=== PATIENT | female | born 1940 | race Caucasian/White ===

== ENCOUNTER 2016-09-14 09:44 | Observation (INO) | payer MEDICARE ==
[2016-09-14] MEDS ORDERED: NITROGLYCERIN OINT 1 INCH/GM PACKET TOPICAL STA (10:09)
[2016-09-14] MEDS ORDERED: ASPIRIN 81 MG CHEW PO STA (10:09)
[2016-09-14] MEDS ORDERED: SODIUM CHLORIDE 0.9% 1,000 ML IV STA (10:09)
[2016-09-14] MEDS ORDERED: ACETAMINOPHEN TAB 500 MG TAB PO STA (10:11)
--- NOTE | 2016-09-14 10:50 | XR ---
EXAMINATION TYPE: XR chest 2V DATE OF EXAM: 09/14/2016 COMPARISON: NONE HISTORY: Chest pain today. TECHNIQUE: Frontal and lateral views of the chest are obtained. FINDINGS: There is no focal air space opacity, pleural effusion, or pneumothorax seen. The cardiac silhouette size is enlarged with atherosclerotic aorta. The osseous structures are somewhat deminer alized. IMPRESSION: Cardiomegaly without acute pulmonary process.
[2016-09-14 11:05] LABS: Basophils % (A) 1 %; CH 31.1; CHCM 34.5; Eosinophils # (A) 0.1 k/uL (0-0.7); Eosinophils % (A) 2 %; HCT 40.9 % (34.0-46.0); HDW 2.53; HGB 14.1 gm/dL (11.4-16.0); Luc % (Auto) 2; Lymphocytes # (A) 0.7 k/uL (1.0-4.8); Lymphocytes % (A) 16 %; MCH 31.3 pg (25.0-35.0); MCHC 34.6 g/dL (31.0-37.0); MCV 90.6 fL (80.0-100.0); Mean Platelet Volume 7.6; Monocytes # (A) 0.3 k/uL (0-1.0); Monocytes % (A) 7 %; Neutrophils # (A) 3.5 k/uL (1.3-7.7); Neutrophils % (A) 74 %; RBC 4.52 m/uL (3.80-5.40); RDW 13.5 % (11.5-15.5); WBC 4.7 k/uL (3.8-10.6); WBC (Perox) 4.62
[2016-09-14 11:15] LABS: Partial Thromboplastin Time 22.6 sec (22.0-30.0); Prothrombin Time 10.1 sec (9.0-12.0)
[2016-09-14 11:20] LABS: ALT 28 U/L (9-52); AST 24 U/L (14-36); Alkaline Phosphatase 91 U/L (38-126); Anion Gap 8 mmol/L; Blood Urea Nitrogen 17 mg/dL (7-17); Calcium 9.8 mg/dL (8.4-10.2); Carbon Dioxide 25 mmol/L (22-30); Chloride 111 mmol/L (98-107); Glucose 89 mg/dL (74-99); Magnesium 1.8 mg/dL (1.6-2.3); Non-African American GFR(MDRD) >60 (>60 ml/min/1.73 sqM); Potassium 3.6 mmol/L (3.5-5.1); Sodium 144 mmol/L (137-145); Total Bilirubin 0.8 mg/dL (0.2-1.3)
[2016-09-14 11:29] LABS: Creatine Kinase 117 U/L (30-135)
--- NOTE | 2016-09-14 11:29 | ED ---
Chest Pain HPI - General Chief Complaint: Chest Pain Stated Complaint: Chest Pain Time Seen by Provider: 09/14/16 09:56 Source: patient Mode of arrival: ambulatory Limitations: no limitations - History of Present Illness Initial Comments: She stated that she had a chest pain 945 about 25 minutes prior to arrival here lasted for 15 minutes now she is totally pain-free no shortness of breath no pleuritic chest pain no fever no chills and she is no nausea no vomiting no cold sweats. She stated she has a history of for a vasovagal event CN the second time vasovagal episodes present like to, review of system is totally unremarkable including chest pain right now - Related Data Home Medications Medication Instructions Recorded Confirmed Aspirin 81 mg PO DAILY 09/14/16 09/14/16 Atenolol [Tenormin] 25 mg PO DAILY 09/14/16 09/14/16 Cyanocobalamin [Vitamin B-12] 500 mcg PO DAILY 09/14/16 09/14/16 Ferrous Sulfate [Iron] 325 mg PO DAILY 09/14/16 09/14/16 Omeprazole Magnesium [Prilosec Otc] 20 mg PO BID 09/14/16 09/14/16 Pravastatin Sodium [Pravachol] 80 mg PO DAILY 09/14/16 09/14/16 Allergies Allergy/AdvReac Type Severity Reaction Status Date / Time Bisphosphonates Allergy Unknown Unknown Verified 09/14/16 11:17 cephalexin [From Keflex] Allergy Unknown Unknown Verified 09/14/16 11:17 clindamycin Allergy Unknown Unknown Verified 09/14/16 11:17 Review of Systems ROS Statement: Those systems with pertinent positive or pertinent negative responses have been documented in the HPI. ROS Other: All systems not noted in ROS Statement are negative. EKG Findings - EKG Comments: EKG Findings:: Ventricular rate is 56 [place] interval is 260 QRS duration is 112 QT/ QTc is 426/411 and has a sinus bradycardia with a first-degree AV block and incomplete left bundle branch block is a T-wave inversion in leads 3 and T wave flattening in aVF no ST elevation or ST depression noticed in any other leads Past Medical History Past Medical History: No Reported History History of Any Multi-Drug Resistant Organisms: None Reported Past Surgical History: Bladder Surgery, Hysterectomy Past Psychological History: No Psychological Hx Reported Smoking Status: Never smoker Past Alcohol Use History: None Reported Past Drug Use History: None Reported General Exam - General Exam Comments Initial Comments: General: The patient is awake and alert, in no distress, and does not appear acutely ill. Skin: Skin is warm and dry and no rashes or lesions are noted. Eye: Pupils are equal, round and reactive to light, extra-ocular movements are intact; there is normal conjunctiva bilaterally. Ears, nose, mouth and throat: There are moist mucous membranes and no oral lesions. Neck: The neck is supple, there is no tenderness or JVD. Cardiovascular: There is a regular rate and rhythm. No murmur, rub or gallop is appreciated. Respiratory: To auscultation bilateral, no wheezing no rhonchi no distress respiratory leonardo noticed Gastrointestinal: Soft, non-distended, non-tender abdomen without masses or organomegaly noted. There is no rebound or guarding present. Bowel sounds are unremarkable. Back: There is no tenderness to palpation in the midline. There is no obvious deformity. Musculoskeletal: Normal ROM, no tenderness, There is no pedal edema. There is no calf tenderness or swelling. No cords were appreciated. Neurological: CN II-XII intact, Cranial nerves III through XII are intact. There are no obvious motor or sensory deficits. Coordination appears grossly intact. Speech is normal. Psychiatric: Cooperative, appropriate mood & affect, normal judgment. Limitations: no limitations Course Vital Signs 09/14/16 09/14/16 09:46 11:30 Temperature 98.6 F Pulse Rate 59 L 50 L Respiratory 20 18 Rate Blood Pressure 190/77 150/72 O2 Sat by Pulse 96 98 Oximetry Disposition Clinical Impression: Chest pain, Cardiomegaly Disposition: ADMITTED IP TO THIS HOSP Referrals: Henrietta Ring MD [Primary Care Provider] - 1-2 days
[2016-09-14 11:40] LABS: Troponin I <0.012 ng/mL (0.000-0.034)
[2016-09-14 11:47] LABS: Creatine Kinase MB 2.5 ng/mL (0.0-2.4)
[2016-09-14] MEDS ORDERED: MORPHINE SULFATE 2 MG/ML SYRINGE IVP PRN (13:23)
[2016-09-14] MEDS ORDERED: NITROGLYCERIN SL TABS 0.4 MG TAB SUBLINGUAL PRN (13:23)
[2016-09-14] MEDS ORDERED: SODIUM CHLORIDE 0.9% 1,000 ML IV SCH (13:30)
[2016-09-14 16:56] LABS: Creatine Kinase 99 U/L (30-135)
[2016-09-14 17:09] LABS: Troponin I <0.012 ng/mL (0.000-0.034)
[2016-09-14] MEDS: PANTOPRAZOLE 40 MG TABLET PO SCH (19:24)
[2016-09-14] MEDS ORDERED: ATORVASTATIN 40 MG TAB PO SCH (21:00)
[2016-09-14 23:04] LABS: Creatine Kinase 78 U/L (30-135)
[2016-09-14 23:18] LABS: Creatine Kinase MB 1.5 ng/mL (0.0-2.4); Troponin I <0.012 ng/mL (0.000-0.034)
[2016-09-15 02:09] LABS: Cholesterol 145 mg/dL (<200); HDL Cholesterol 56 mg/dL (40-60); Triglycerides 124 mg/dL (<150)
[2016-09-15 07:44] VITALS: RESP 16
[2016-09-15] MEDS ORDERED: ATENOLOL 25 MG TAB PO SCH (09:00)
[2016-09-15] MEDS ORDERED: PRAVASTATIN SODIUM 80 MG TAB PO SCH (09:00)
[2016-09-15] MEDS ORDERED: ASPIRIN 325 MG TAB PO SCH (09:00)
[2016-09-15] MEDS: PANTOPRAZOLE 40 MG TABLET PO SCH (10:19)
[2016-09-15 11:41] VITALS: BP 126/53; PULSE 60; TEMP 98.3
[2016-09-15] MEDS ORDERED: FERROUS SULFATE 325 MG TAB PO SCH (12:00)
[2016-09-15] MEDS ORDERED: CYANOCOBALAMIN 500 MCG TAB PO SCH (12:00)
--- NOTE | 2016-09-15 13:40 | P.HPIM ---
History of Present Illness H&P Date: 09/15/16 Chief Complaint: chest pain This is a 76-year-old female with past medical history significant for hypertension, hyperlipidemia, and what she describes as vasovagal the presented to the emergency room with chest pain. Patient said that she was driving her car and suddenly she had sharp pain in the middle of her chest that she rates as 8 out of 10 in severity. Patient said that her pain was associated with mild dizziness. She denies shortness of breath. She denies significant chest pain otherwise. She was concerned and decided to come to the emergency room. Her chest pain resolved approximately 10 minutes later without any treatment. Patient was evaluated in the emergency room twelve-lead EKG showed sinus bradycardia with no evidence of acute ischemic changes. Serial troponin were negative 3 sets. Chest x-ray showed evidence of cardiomegaly and no acute process otherwise. Patient was seen and evaluated by cardiology. Apparently she had a stress test done in the office approximately 4 months ago that was negative. Patient remained chest pain-free. Her pain was deemed to be atypical in nature. She was cleared by cardiology for discharge home. I would decrease her atenolol dose of 12.5 mg given bradycardia on presentation. She will follow-up with her head housekeeper in the office with his next week. Review of Systems Review of system: 14 points review of systems were obtained and were negative except to what were mentioned in the HPI. Past Medical History Past Medical History: Hyperlipidemia Additional Past Medical History / Comment(s): PT STATES SHE HAS BEEN TOLD SHE HAS A VASOVAGAL SYNDROME (STATED SHE HAD A POSTIVE TILT TABLE TEST). STATES THAT SHE HAS EPISODES OF PAIN OR FEELING OF GOING TO [facility] OUT, BUT NEVER PASSES OUT. ARTHRITIS History of Any Multi-Drug Resistant Organisms: None Reported Past Surgical History: Bladder Surgery, Cholecystectomy, Hysterectomy Additional Past Surgical History / Comment(s): BILAT CATARACT REMOVAL, BLADDER REMOVED (UROSTOMY) Past Anesthesia/Blood Transfusion Reactions: No Reported Reaction Past Psychological History: No Psychological Hx Reported Smoking Status: Never smoker Past Alcohol Use History: None Reported Past Drug Use History: None Reported - Past Family History Mother History Unknown: Yes Additional Family Medical History / Comment(s): HAD PACEMAKER AT 75 Father History Unknown: Yes Additional Family Medical History / Comment(s): HAD CANCER Medications and Allergies Home Medications Medication Instructions Recorded Confirmed Type Aspirin 81 mg PO DAILY 09/14/16 09/14/16 History Atenolol [Tenormin] 25 mg PO DAILY 09/14/16 09/14/16 History Cyanocobalamin [Vitamin B-12] 500 mcg PO DAILY 09/14/16 09/14/16 History Ferrous Sulfate [Iron] 325 mg PO DAILY 09/14/16 09/14/16 History Omeprazole Magnesium [Prilosec Otc] 20 mg PO BID 09/14/16 09/14/16 History Pravastatin Sodium [Pravachol] 80 mg PO DAILY 09/14/16 09/14/16 History Allergies Allergy/AdvReac Type Severity Reaction Status Date / Time Bisphosphonates Allergy Unknown Unknown Verified 09/14/16 11:17 cephalexin [From Keflex] Allergy Unknown Unknown Verified 09/14/16 11:17 clindamycin Allergy Unknown Unknown Verified 09/14/16 11:17 Physical Exam Vitals: Vital Signs Temp Pulse Pulse Resp BP BP Pulse Ox 09/15/16 11:39 98.3 F 60 16 126/53 94 L 09/15/16 07:39 98.1 F 62 16 128/49 93 L 09/15/16 04:00 98 F 57 L 18 119/52 94 L 09/15/16 00:00 18 09/14/16 23:22 62 18 133/56 99 09/14/16 20:00 18 09/14/16 19:23 97.9 F 64 18 127/55 94 L 09/14/16 15:21 54 L 09/14/16 14:21 97.4 F L 57 L 16 156/75 96 09/14/16 13:41 97.6 F 54 L 18 156/81 99 Intake and Output 09/14/16 09/15/16 09/15/16 22:59 06:59 14:59 Intake Total 500 118 Balance 500 118 Intake: Intake, IV Titration 500 Amount Sodium Chloride 0.9% 1, 500 000 ml @ 100 mls/hr IV . Q10H STA Rx#:[id number] Oral 118 Other: Voiding Method Toilet Toilet Toilet # Voids 1 Weight 79.3 kg 79.3 kg Patient Weight 09/16/16 06:59 Weight 79.3 kg General: The patient is awake and alert, in no distress Eye: there is normal conjunctiva bilaterally. Neck: The neck is supple, there is no JVD. Cardiovascular: Normal S1-S2, no S3-S4, no murmurs. Respiratory: Lungs clear to auscultation bilaterally Gastrointestinal: Abdomen is soft, nontender Musculoskeletal: There is no pedal edema. Neurological:. Speech is normal. Skin: Skin is warm and dry Results CBC & Chem 7: 09/14/16 10:33 09/14/16 10:33 Thrombosis Risk Factor Assmnt - Choose All That Apply Other Risk Factors: Yes Each Risk Factor Represents 3 Points: Age 75 years or older Thrombosis Risk Factor Assessment Total Risk Factor Score: 3 Thrombosis Risk Factor Assessment Level: Moderate Risk Assessment and Plan Plan: This is a 76-year-old female with past medical history significant for hypertension, hyperlipidemia, and what she describes as vasovagal the presented to the emergency room with chest pain. Patient said that she was driving her car and suddenly she had sharp pain in the middle of her chest that she rates as 8 out of 10 in severity. Patient said that her pain was associated with mild dizziness. She denies shortness of breath. She denies significant chest pain otherwise. She was concerned and decided to come to the emergency room. Her chest pain resolved approximately 10 minutes later without any treatment. Patient was evaluated in the emergency room twelve-lead EKG showed sinus bradycardia with no evidence of acute ischemic changes. Serial troponin were negative 3 sets. Chest x-ray showed evidence of cardiomegaly and no acute process otherwise. Patient was seen and evaluated by cardiology. Apparently she had a stress test done in the office approximately 4 months ago that was negative. Patient remained chest pain-free. Her pain was deemed to be atypical in nature. She was cleared by cardiology for discharge home. I would decrease her atenolol dose of 12.5 mg given bradycardia on presentation. She will follow-up with her head housekeeper in the office with his next week.
--- NOTE | 2016-09-15 13:41 | P.DS ---
Providers Date of admission: 09/14/16 13:23 Expected date of discharge: 09/15/16 Attending physician: Mile Bolden Consults: 09/14/16 13:23 Consult Physician Urgent Consulting Provider: Cam Rudolph Consult Reason/Comments: Chest pain Do you want consulting provider notified?: Yes Primary care physician: [facility] Course: This is a 76-year-old female with past medical history significant for hypertension, hyperlipidemia, and what she describes as vasovagal the presented to the emergency room with chest pain. Patient said that she was driving her car and suddenly she had sharp pain in the middle of her chest that she rates as 8 out of 10 in severity. Patient said that her pain was associated with mild dizziness. She denies shortness of breath. She denies significant chest pain otherwise. She was concerned and decided to come to the emergency room. Her chest pain resolved approximately 10 minutes later without any treatment. Patient was evaluated in the emergency room twelve-lead EKG showed sinus bradycardia with no evidence of acute ischemic changes. Serial troponin were negative 3 sets. Chest x-ray showed evidence of cardiomegaly and no acute process otherwise. Patient was seen and evaluated by cardiology. Apparently she had a stress test done in the office approximately 4 months ago that was negative. Patient remained chest pain-free. Her pain was deemed to be atypical in nature. She was cleared by cardiology for discharge home. I would decrease her atenolol dose of 12.5 mg given bradycardia on presentation. She will follow-up with her auto body painter in the office with his next week. Plan - Discharge Summary New Discharge Prescriptions: New Atenolol [Tenormin] 12.5 mg PO DAILY #30 tab Continue Aspirin 81 mg PO DAILY Pravastatin Sodium [Pravachol] 80 mg PO DAILY Ferrous Sulfate [Iron] 325 mg PO DAILY Cyanocobalamin [Vitamin B-12] 500 mcg PO DAILY Omeprazole Magnesium [Prilosec Otc] 20 mg PO BID Discontinued Atenolol [Tenormin] 25 mg PO DAILY Discharge Medication List Aspirin 81 mg PO DAILY 09/14/16 [History] Cyanocobalamin [Vitamin B-12] 500 mcg PO DAILY 09/14/16 [History] Ferrous Sulfate [Iron] 325 mg PO DAILY 09/14/16 [History] Omeprazole Magnesium [Prilosec Otc] 20 mg PO BID 09/14/16 [History] Pravastatin Sodium [Pravachol] 80 mg PO DAILY 09/14/16 [History] Atenolol [Tenormin] 12.5 mg PO DAILY #30 tab 09/15/16 [Rx] Follow up Appointment(s)/Referral(s): Henrietta Ring MD [Primary Care Provider] - 1-2 days Discharge Disposition: HOME SELF-CARE
--- NOTE | 2016-09-15 16:17 | CONS ---
DATE OF CONSULTATION: Cheyenne Null is a 76-year-old lady with a known to diagnosis of vasovagal syncope who always stays well hydrated, has been on a small dose of beta blockers, sees Dr. Kitty Zuleta in the outpatient setting. She came into the hospital with an episode off of about 15 minutes of discomfort in the chest, which she described as tingling feeling, felt a little uncomfortable. It happened while she was at rest, and then she thought this may be something to do with her vasovagal type feeling. She did not have any nausea or any sensation of lightheadedness, dizziness, syncope or near syncope. The quality of pain seems very atypical, a fleeting sensation across the chest that came on and off. This symptom had completely resolved by the time she arrived in the hospital. Her troponins are normal. EKG is unremarkable. Within the last one year according to the patient she had a stress test that was negative. She has hyperlipidemia, vasovagal tendencies, and borderline hypertension. She is resting comfortably without symptoms. PAST MEDICAL HISTORY: 1. History of vasovagal episodes. 2. Hyperlipidemia. 3. History of atypical chest pain with a negative stress in one year. Medications include aspirin 81 mg daily, Tenormin 25 mg daily, vitamin supplements, pravastatin 80 mg daily, omeprazole 20 mg daily. ALLERGIES: CEPHALEXIN, CLINDAMYCIN, BISPHOSPHONATES. REVIEW OF SYSTEMS: Unremarkable other than above-mentioned facts. On examination, blood pressure is 130/70, pulse rate is about 70 per minute, regular. HEENT: Unremarkable. Fundus was not examined by me. Neck is supple. No JVD. I do not hear a carotid bruit. Heart exam reveals S1 and S2 heard normally without a rub, murmur or gallop. Lungs are clear. Abdomen is soft, nontender. Lower extremities reveal normal pulses. No edema. Central nervous system is normal. EKG revealed sinus mechanism. No acute changes. Nonspecific T wave changes are seen in the lead III. A repeat EKG from this morning reveals a sinus mechanism with poor R wave progression, which may be related to lead placement. No acute findings. Laboratory data suggests her troponin levels are all normal so far; there are 3 sets of troponins. IMPRESSION: 1. Atypical chest pain in a patient with a negative stress test within the last one year. 2. History of vasovagal syncope, but no presentation of this type today. 3. Hyperlipidemia. RECOMMENDATIONS: I am recommending we put a Hep-Lock in, increase activity. If she has no further symptoms, she can be discharged and see Dr. Madi Zuleta in the office and an outpatient stress testing may be necessary. I discussed my thoughts in detail with the patient. Thank you very much for the consult.
== END 2016-09-15 14:06 | disposition home or self-care (01) ==
LOC: EC 09:44 → 3OBS 13:23
PROVIDERS: ADMIT Internal Medicine; ATTEND Internal Medicine
DX: R07.89 Other chest pain (principal); E78.5 Hyperlipidemia, unspecified; I10 Essential (primary) hypertension; R00.1 Bradycardia, unspecified; Z79.899 Other long term (current) drug therapy; Z79.82 Long term (current) use of aspirin; Z88.1 Allergy status to other antibiotic agents; Z88.8 Allergy status to other drugs, medicaments and biological substances
CPT/HCPCS: 99285; 96361 ×6; 96360 ×2; 36415; 93005; 85379; 80061; 80053; 82550; 82553; 83735; 84484; 85025; 85610; 85730; 71020; G0378 ×2